=== PATIENT | female | born 1970 | race Caucasian/White ===

== ENCOUNTER 2023-06-15 13:37 | Outpatient (CLI) | payer OTHER | END 2023-06-15 14:02 | disposition home or self-care (01) | LOC: SONOGRAMA 13:37 | DX: E04.2 Nontoxic multinodular goiter (principal) ==

== ENCOUNTER 2023-11-18 08:39 | Outpatient (CLI) | payer OTHER | END 2023-11-18 08:53 | disposition home or self-care (01) | LOC: MAMO-SONO 08:39 | DX: N64.4 Mastodynia (principal); Z12.31 Encounter for screening mammogram for malignant neoplasm of breast; R10.11 Right upper quadrant pain; R10.2 Pelvic and perineal pain ==

== ENCOUNTER → 2023-12-06 13:59 | Outpatient (CLI) | payer OTHER | END | disposition home or self-care (01) | LOC: NUCLEAR 12-01 13:00 | DX: M81.0 Age-related osteoporosis without current pathological fracture (principal) ==

== ENCOUNTER 2024-05-31 15:48 | Outpatient (CLI) | payer OTHER | END 2024-05-31 16:01 | disposition home or self-care (01) | LOC: RAD 15:48 | DX: M54.50 Low back pain, unspecified (principal); M25.579 Pain in unspecified ankle and joints of unspecified foot; M13.872 Other specified arthritis, left ankle and foot; M13.871 Other specified arthritis, right ankle and foot ==

== ENCOUNTER 2024-10-02 15:01 | Outpatient (CLI) | payer OTHER | END 2024-10-02 15:03 | disposition home or self-care (01) | LOC: RAD 15:01 | DX: M54.2 Cervicalgia (principal) ==